=== PATIENT | female | born 1985 | race African-American/Black ===

== ENCOUNTER 2016-12-14 10:12 | Emergency (ER) | payer MEDICAID, OTHER ==
[~2016-12-14] VITALS: Ht 165.1 cm; Wt 83.0 kg
[~2016-12-14 10:12] MED LIST: DEPO400I IM; NAPR550 PO; PRED20 PO; SULF1TAB47 PO
[2016-12-14 10:14] VITALS: BP 125/79; PULSE 108; RESP 14; TEMP 99.5; O2SAT 98
--- NOTE | 2016-12-14 11:23 | PD ---
HPI Chief Complaint: Musculoskeletal Complaint Time Seen by Provider: 11:05 Travel History International Travel<30 days: No Contact w/Intl Traveler<30days: No Traveled to known affect area: No History of Present Illness HPI 31-year-old female presents to the emergency room for evaluation of numbness and tingling to bilateral plantar feet for the past week. Patient states symptoms are intermittent. Worse in the morning when she first steps out of bed and after long periods of sitting down. States the symptoms are localized to the plantar aspects without radiation. She has associated low back pain but denies any recent trauma or injury. Denies saddle anesthesia, loss of bowel or bladder control, IV drug use, fever, chills, nausea, vomiting, or weight loss. She has not taken anything for symptoms. Denies chronic medical conditions or daily medications. Denies chronic alcohol use or history of diabetes. PFSH Past Medical History Blood Disorders: No Anxiety: No Depression: No Cancer: No Cardiovascular Problems: No Endocrine: No Gastrointestinal Disorders: No Glaucoma: No Genitourinary: No Immune Disorder: No Musculoskeletal: No Neurologic: No Psychiatric: No Reproductive: No Respiratory: No Seizures: Yes (LAST SZ 07/02) ?: Unknown : 4 Para: 3 Past Surgical History AICD: No Arteriovenous Shunt: No Insulin Pump: No Joint Replacement: No Pacemaker: No Other Surgery: No Social History Alcohol Use: No Tobacco Use: No Substance Use: No Allergies-Medications (Allergen,Severity, Reaction): Coded Allergies: No Known Allergies (Verified , 12/14/16) Reported Meds & Prescriptions Reported Meds & Active Scripts Active Review of Systems Except as stated in HPI: all other systems reviewed are Neg Physical Exam Narrative GENERAL: Well-nourished, well-developed female in no acute distress. Afebrile. Ambulatory. SKIN: Focused skin assessment warm/dry. HEAD: Normocephalic. EYES: No scleral icterus. No injection or drainage. NECK: Supple, trachea midline. No JVD or lymphadenopathy. CARDIOVASCULAR: Slightly tachycardic. Regular rhythm without murmurs, gallops, or rubs. MUSCULOSKELETAL: No cyanosis, or edema. 1+ dorsalis pedis pulse on the right. 1+ dorsalis pedis pulse on the left, confirmed with Doppler. Full range of motion of bilateral lower extremities. 2+ patellar and Achilles reflexes are equal bilaterally. BACK: No CVA tenderness. No rash. Tenderness on palpation of the spine. Data Data Last Documented VS Vital Signs Date Time Temp Pulse Resp B/P (MAP) Pulse Ox O2 Delivery O2 Flow Rate FiO2 12/14/16 11:57 12/14/16 10:14 99.5 108 14 98 Orders Orders Ed Discharge Order (12/14/16 11:47) MDM Medical Decision Making Medical Screen Exam Complete: Yes Emergency Medical Condition: Yes Medical Record Reviewed: Yes Differential Diagnosis Peripheral neuropathy, diabetic neuropathy, PVD, plantar fasciitis Narrative Course 31-year-old female presents to the emergency room for evaluation of tingling to bilateral plantar feet for the past week. Patient denies trauma or injury. Has associated back pain without red flag symptoms. No indication for imaging of the back at this time. Bilateral lower extremities are neurovascularly intact with full range of motion, 5/5 strength, and less than 2 second capillary refill distally. She does have diminished pulses, faint 1+ bilaterally, confirmed with Doppler. Patient was informed to follow-up with a yard attendant or vascular surgeon as this may be exacerbating her symptoms. No emergent indications for consult at this point. History and physical exam are consistent with plantar fasciitis, symptoms occur grayness after long periods of rest such as getting up in the morning when she first steps out of bed. Improves throughout the day. She was discharged with instructions to start performing plantar fasciitis exercises and return for worsening symptoms. She understands and agrees to plan. Diagnosis Primary Impression: Plantar fasciitis, bilateral Referrals: [facility] Physician Additional Instructions: [employer] exercises for plantar fasciitis. Follow-up with a primary care physician about decreased blood flow to legs. Return to the emergency room for worsening symptoms. Med/Other Pt SpecificInfo: Prescription(s) given Disposition: DISCHARGE HOME Condition: Stable No Bass Dec 14, 2016 11:23
== END 2016-12-14 12:22 | disposition home or self-care (01) ==
LOC: NEPK 10:12
DX: M72.2 Plantar fascial fibromatosis (principal)
CPT/HCPCS: 99282